=== PATIENT | female | born 1990 | race African-American/Black ===

== ENCOUNTER 2024-08-04 12:52 | Emergency (ER) | payer OTHER, MEDICAID ==
[~2024-08-04] VITALS: Ht 167.6 cm; Wt 82.0 kg
[2024-08-04 13:05] VITALS: BP 138/88; TEMP 36.7; O2SAT 98
[2024-08-04 13:08] VITALS: PULSE 102; RESP 20; O2SAT 99
[2024-08-04] MEDS ORDERED: ACET-2708 MT (15:06)
== END 2024-08-04 17:08 | disposition home or self-care (01) ==
LOC: ER 12:52
DX: S93.402A Sprain of unspecified ligament of left ankle, initial encounter (principal); Z68.29 Body mass index [BMI] 29.0-29.9, adult; W18.30XA Fall on same level, unspecified, initial encounter; Y93.89 Activity, other specified; Y92.89 Other specified places as the place of occurrence of the external cause; Y99.8 Other external cause status
CPT/HCPCS: 73610; 99283